=== PATIENT | male | born 1940 | race Caucasian/White ===

== ENCOUNTER 2023-05-18 14:52 | Emergency (ER) | payer OTHER, BC ==
[2023-05-18] MEDS ORDERED: ONDANSETRON 4 MG/2 ML VIAL ONE (15:21)
[2023-05-18] MEDS ORDERED: MORPHINE 4 MG/ML SYR ONE (15:21)
[2023-05-18] MEDS ORDERED: NA CHLORIDE 0.9% 1,000 ML ONE (15:22)
[2023-05-18] MEDS ORDERED: FAMOTIDINE 20 MG/2 ML VIAL IV ONE (15:22)
[2023-05-18 15:24] LABS: Absolute Lymphocytes (CBC) 2.2 K/uL (0.7-4.9); Hematocrit 48.7 % (39.6-49.0); MCV 89.9 fL (80-100); RBC Red Blood Cell Count 5.41 M/uL (4.33-5.43)
[2023-05-18 15:43] LABS: Bilirubin Total 1.2 mg/dL (0.2-1.0); Potassium 3.8 mEq/L (3.5-5.1); Troponin High Sensitivity 9.9 pg/mL (<58.9)
--- OUTSIDE RECORDS SUMMARY | 2023-05-18 15:46 | XMS REPORT | Continuity of Care Document ---
:1940 Author Organization [facility] t Address [address] [place] [address] Care Team Providers Name Role Phone Nahomy Acuña Attending Clinician Unavailable Payers Payer Name Policy Type Policy Number Effective Date Expiration Date Nandini Chew Cross 6 [id number] 2015 [facility] [employer] of 00:00:[address] - [facility] Problems Condition Condition Condition Status Onset Resolution Last Treating Co mments Source Name Details Category Date Date Treatment Clinician Date Ventral Ventral Problem Common hernia hernia [facility] Gastroesop Gastroesop Problem C ommon hageal hageal [facility] reflux reflux - [facility] disease disease St without without [facility] esophagiti esophagiti Dc dical s s Center Foot pain Foot pain Problem Com mon Spirit [facility] [id number] Pure Problem Common hyperchole Spirit sterolemia [facility] Renal Renal Problem Common insufficie insufficie Sp yuliet ncy ncy [facility] 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 - [facility] of macula [facility] Gastroesop GERD Problem Commo n hageal (gastroeso Spirit reflux phageal - [facility] disease reflux St disease) [facility] Shoulder Shoulder Problem Commo n pain pain [facility] Coronary Coronary Problem Commo n artery artery [facility] disease disease [facility] [id number] +5th digit Problem Co mmon eff Spirit 08/12/20*CK - [facility]I D (chronic St kidney [facility] disease), Medical stage III Center [id number] Facial Problem Common paresthesi [facility] a [facility] [id number] Allergic Problem Commo n rhinitis, Spirit unspecifie - [facility] d [facility] y, Medical unspecifie Center d trigger [id number] History of Problem Co mmon recurrent Spirit TIAs [facility] Eosinophil Eosinophil Problem C ommon ia ia [facility] Hypertensi Hypertensi Problem C ommon on on [facility] [id number] Erectile Problem Comm on dysfunctio [facility] n, - CHI unspecifie d erectile [facility] dysfunctio Medica l n type Center [id number] Cough Problem Common [facility] [id number] Generalize Problem Com mon d anxiety [facility] disorder [facility] 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 Social History Social Habit Start Date Stop Date Quantity Comments Source History of Tobacco Use Co mmon [facility] Sex Assigned At Com mon [facility] Smoking Status Start Date Stop Date Source Never Smoker [facility] Medications Ordered Filled Start Stop Current Ordering Indication Dosage Frequency Signature Comments Components Source Medication Medication Date Date Medication? Clinician (SIG) Name Name Famotidine Famotidine 2020-0 Yes Na Acuña 1 tablet Common 5-19 at bedtime Spirit 00:00: as needed - [facility] Famotidine Famotidine 2020-0 No 1{table QD Famotidine 40 MG 40 MG 5-19 t_at_be 40 MG 00:00: dtime_a 00 s_neede d} Famotidine Famotidine 2020-0 No 1{table QD Famotidine 40 MG 40 MG 5-19 t_at_be 40 MG 00:00: dtime_a 00 s_neede d} Famotidine Famotidine 2020-0 No 1{table QD Famotidine 40 MG 40 MG 5-19 t_at_be 40 MG 00:00: dtime_a 00 s_neede d} Famotidine Famotidine 2020-0 No 1{table QD Famotidine 40 MG 40 MG 5-19 t_at_be 40 MG 00:00: dtime_a 00 s_neede d} Famotidine Famotidine 2020-0 No 1{table QD Famotidine 40 MG 40 MG 5-19 t_at_be 40 MG 00:00: dtime_a 00 s_neede d} Famotidine Famotidine 2020-0 No 1{table QD Famotidine 40 MG 40 MG 5-19 t_at_be 40 MG 00:00: dtime_a 00 s_neede d} Famotidine Famotidine 2020-0 No 1{table QD Famotidine 40 MG 40 MG 5-19 t_at_be 40 MG 00:00: dtime_a 00 s_neede d} Famotidine Famotidine 2020-0 No 1{table QD Famotidine 40 MG 40 MG 5-19 t_at_be 40 MG 00:00: dtime_a 00 s_neede d} Famotidine Famotidine 2020-0 No 1{table QD Famotidine 40 MG 40 MG 5-19 t_at_be 40 MG 00:00: dtime_a 00 s_neede d} Famotidine Famotidine 2020-0 No 1{table QD Famotidine 40 MG 40 MG 5-19 t_at_be 40 MG 00:00: dtime_a 00 s_neede d} Famotidine Famotidine 2020-0 No 1{table QD Famotidine 40 MG 40 MG 5-19 t_at_be 40 MG 00:00: dtime_a 00 s_neede d} Clarinex Clarinex Yes Na Acuña 1 tablet [facility] - [facility] Flonase Flonase Yes Na Acuña USE 2 Commo n SPRAYS IN Spirit EACH - CHI NOSTRIL EVERY DAY [facility] Amlodipine Amlodipine Yes Na Acuña TAKE 1 Common Besy-Benaze Besy-Benaze CAPSULE BY Spirit pril HCl pril HCl MOUTH - CHI DAILY [facility] Aspir-81 Aspir-81 Yes Na Acuña 1 tablet Common [facility] Singulair Singulair Yes Na Acuña TAKE 1 Common TABLET BY Spirit MOUTH ONCE - CHI DAILY [facility] Lipitor Lipitor Yes Na Acuña 1 tablet Co mmon [facility] Flonase Flonase Yes Na Acuña USE 2 Commo n Allergy Allergy SPRAYS IN Spir it Relief Relief EACH - CHI NOSTRIL EVERY DAY [facility] [address] [facility] Citalopram Citalopram Yes Na Acuña 1 tablet Common Hydrobromid Hydrobromid S pirit e e - [facility] Hydrochloro Hydrochloro Yes Na Acuña 1 tablet Common thiazide thiazide in the Spiri t morning [facility] Vitamin D Vitamin D Yes Na Acuña 1 tablet Common [facility] Nisoldipine Nisoldipine Yes Na Acuña 1 tablet Common ER ER [facility] Lansoprazol Lansoprazol Yes Na Acuña 1 capsule Common e e [facility] Fish Oil Fish Oil Yes Na Acuña 1 capsule Common [facility] Fluticasone Fluticasone Yes Na Acuña INSTILL 2 Common Propionate Propionate SPRAYS IN Spirit EACH - CHI NOSTRIL [facility] PreserVisio PreserVisio Yes Na Acuña not Common n AREDS n AREDS defined Spirit 2+Multi Vit 2+Multi Vit - [facility] Plavix Plavix Yes Na Acuña 1 tablet Comm on [facility] Amlodipine Amlodipine Yes Na Acuña not Common Besy-Benaze Besy-Benaze defined Spirit pril HCl pril HCl - [facility] PreserVisio PreserVisio No PreserVisi n AREDS n AREDS on AREDS 2+Multi Vit 2+Multi Vit 2+Multi - - Vit - Citalopram Citalopram No 1{table QD Citalopram Hydrobromid Hydrobromid t} Hydrobromi e 20 MG e 20 MG de 20 MG Singulair Singulair No Singulair 10 MG 10 MG 10 MG Vitamin D Vitamin D No 1{table QD Vitamin D 1000 UNIT 1000 UNIT t} 1000 UNIT amLODIPine amLODIPine No amLODIPine Besy-Benaze Besy-Benaze Besy-Benaz pril HCl pril HCl epril HCl 10-40 MG 10-40 MG 10-40 MG Aspir-81 81 Aspir-81 81 No 1{table QD Aspir-81 MG MG t} 81 MG amLODIPine amLODIPine No QD amLODIPine Besy-Benaze Besy-Benaze Besy-Benaz pril HCl pril HCl epril HCl 10-40 MG 10-40 MG 10-40 MG Clopidogrel Clopidogrel No Clopidogre Bisulfate Bisulfate l 75 MG 75 MG Bisulfate 75 MG Atorvastati Atorvastati No Atorvastat n Calcium n Calcium in Calcium 40 MG 40 MG 40 MG hydroCHLORO hydroCHLORO No 1{table QD hydroCHLOR thiazide 25 thiazide 25 t_in_th Othiazide MG MG e_morni 25 MG ng} Lipitor 40 Lipitor 40 No 1{table QD Lipitor 40 MG MG t} MG Fluticasone Fluticasone No Fluticason Propionate Propionate e 50 MCG/ACT 50 MCG/ACT Propionate 50 MCG/ACT Plavix 75 Plavix 75 No 1{table QD Plavix 75 MG MG t} MG Fish Oil Fish Oil No 1{capsu QD Fish Oil 1000 MG 1000 MG le} 1000 MG PreserVisio PreserVisio No PreserVisi n AREDS n AREDS on AREDS 2+Multi Vit 2+Multi Vit 2+Multi - - Vit - Citalopram Citalopram No 1{table QD Citalopram Hydrobromid Hydrobromid t} Hydrobromi e 20 MG e 20 MG de 20 MG Singulair Singulair No Singulair 10 MG 10 MG 10 MG Vitamin D Vitamin D No 1{table QD Vitamin D 1000 UNIT 1000 UNIT t} 1000 UNIT amLODIPine amLODIPine No amLODIPine Besy-Benaze Besy-Benaze Besy-Benaz pril HCl pril HCl epril HCl 10-40 MG 10-40 MG 10-40 MG Aspir-81 81 Aspir-81 81 No 1{table QD Aspir-81 MG MG t} 81 MG amLODIPine amLODIPine No QD amLODIPine Besy-Benaze Besy-Benaze Besy-Benaz pril HCl pril HCl epril HCl 10-40 MG 10-40 MG 10-40 MG Clopidogrel Clopidogrel No Clopidogre Bisulfate Bisulfate l 75 MG 75 MG Bisulfate 75 MG Citalopram Citalopram No 1{table QD Citalopram Hydrobromid Hydrobromid t} Hydrobromi e 20 MG e 20 MG de 20 MG Lipitor 40 Lipitor 40 No 1{table QD Lipitor 40 MG MG t} MG Fluticasone Fluticasone No Fluticason Propionate Propionate e 50 MCG/ACT 50 MCG/ACT Propionate 50 MCG/ACT Plavix 75 Plavix 75 No 1{table QD Plavix 75 MG MG t} MG Fish Oil Fish Oil No 1{capsu QD Fish Oil 1000 MG 1000 MG le} 1000 MG PreserVisio PreserVisio No PreserVisi n AREDS n AREDS on AREDS 2+Multi Vit 2+Multi Vit 2+Multi - - Vit - amLODIPine amLODIPine No amLODIPine Besy-Benaze Besy-Benaze Besy-Benaz pril HCl pril HCl epril HCl 10-40 MG 10-40 MG 10-40 MG Singulair Singulair No Singulair 10 MG 10 MG 10 MG Atorvastati Atorvastati No Atorvastat n Calcium n Calcium in Calcium 40 MG 40 MG 40 MG hydroCHLORO hydroCHLORO No 1{table QD hydroCHLOR thiazide 25 thiazide 25 t_in_ Othiazide MG MG e_morni 25 MG ng} Vitamin D Vitamin D No 1{table QD Vitamin D 1000 UNIT 1000 UNIT t} 1000 UNIT Aspir-81 81 Aspir-81 81 No 1{table QD Aspir-81 MG MG t} 81 MG Clopidogrel Clopidogrel No Clopidogre Bisulfate Bisulfate l 75 MG 75 MG Bisulfate 75 MG Citalopram Citalopram No 1{table QD Citalopram Hydrobromid Hydrobromid t} Hydrobromi e 20 MG e 20 MG de 20 MG Lipitor 40 Lipitor 40 No 1{table QD Lipitor 40 MG MG t} MG Fluticasone Fluticasone No Fluticason Propionate Propionate e 50 MCG/ACT 50 MCG/ACT Propionate 50 MCG/ACT Plavix 75 Plavix 75 No 1{table QD Plavix 75 MG MG t} MG Fish Oil Fish Oil No 1{capsu QD Fish Oil 1000 MG 1000 MG le} 1000 MG PreserVisio PreserVisio No PreserVisi n AREDS n AREDS on AREDS 2+Multi Vit 2+Multi Vit 2+Multi - - Vit - amLODIPine amLODIPine No amLODIPine Besy-Benaze Besy-Benaze Besy-Benaz pril HCl pril HCl epril HCl 10-40 MG 10-40 MG 10-40 MG Singulair Singulair No Singulair 10 MG 10 MG 10 MG Atorvastati Atorvastati No Atorvastat n Calcium n Calcium in Calcium 40 MG 40 MG 40 MG hydroCHLORO hydroCHLORO No 1{table QD hydroCHLOR thiazide 25 thiazide 25 t_in_th Othiazide MG MG e_morni 25 MG ng} Vitamin D Vitamin D No 1{table QD Vitamin D 1000 UNIT 1000 UNIT t} 1000 UNIT Aspir-81 81 Aspir-81 81 No 1{table QD Aspir-81 MG MG t} 81 MG Clopidogrel Clopidogrel No Clopidogre Bisulfate Bisulfate l 75 MG 75 MG Bisulfate 75 MG Aspir-81 81 Aspir-81 81 No 1{table QD Aspir-81 MG MG t} 81 MG Atorvastati Atorvastati No Atorvastat n Calcium n Calcium in Calcium 40 MG 40 MG 40 MG Singulair Singulair No Singulair 10 MG 10 MG 10 MG Citalopram Citalopram No 1{table QD Citalopram Hydrobromid Hydrobromid t} Hydrobromi e 20 MG e 20 MG de 20 MG Clopidogrel Clopidogrel No Clopidogre Bisulfate Bisulfate l 75 MG 75 MG Bisulfate 75 MG Fish Oil Fish Oil No 1{capsu QD Fish Oil 1000 MG 1000 MG le} 1000 MG PreserVisio PreserVisio No PreserVisi n AREDS n AREDS on AREDS 2+Multi Vit 2+Multi Vit 2+Multi - - Vit - Fluticasone Fluticasone No Fluticason Propionate Propionate e 50 MCG/ACT 50 MCG/ACT Propionate 50 MCG/ACT Lipitor 40 Lipitor 40 No 1{table QD Lipitor 40 MG MG t} MG amLODIPine amLODIPine No amLODIPine Besy-Benaze Besy-Benaze Besy-Benaz pril HCl pril HCl epril HCl 10-40 MG 10-40 MG 10-40 MG hydroCHLORO hydroCHLORO No 1{table QD hydroCHLOR thiazide 25 thiazide 25 t_in_th Othiazide MG MG e_morni 25 MG ng} Plavix 75 Plavix 75 No 1{table QD Plavix 75 MG MG t} MG Vitamin D Vitamin D No 1{table QD Vitamin D 1000 UNIT 1000 UNIT t} 1000 UNIT Aspir-81 81 Aspir-81 81 No 1{table QD Aspir-81 MG MG t} 81 MG Atorvastati Atorvastati No Atorvastat n Calcium n Calcium in Calcium 40 MG 40 MG 40 MG Singulair Singulair No Singulair 10 MG 10 MG 10 MG Citalopram Citalopram No 1{table QD Citalopram Hydrobromid Hydrobromid t} Hydrobromi e 20 MG e 20 MG de 20 MG Clopidogrel Clopidogrel No Clopidogre Bisulfate Bisulfate l 75 MG 75 MG Bisulfate 75 MG Fish Oil Fish Oil No 1{capsu QD Fish Oil 1000 MG 1000 MG le} 1000 MG PreserVisio PreserVisio No PreserVisi n AREDS n AREDS on AREDS 2+Multi Vit 2+Multi Vit 2+Multi - - Vit - Fluticasone Fluticasone No Fluticason Propionate Propionate e 50 MCG/ACT 50 MCG/ACT Propionate 50 MCG/ACT Lipitor 40 Lipitor 40 No 1{table QD Lipitor 40 MG MG t} MG amLODIPine amLODIPine No amLODIPine Besy-Benaze Besy-Benaze Besy-Benaz pril HCl pril HCl epril HCl 10-40 MG 10-40 MG 10-40 MG hydroCHLORO hydroCHLORO No 1{table QD hydroCHLOR thiazide 25 thiazide 25 t_in_th Othiazide MG MG e_morni 25 MG ng} Plavix 75 Plavix 75 No 1{table QD Plavix 75 MG MG t} MG Vitamin D Vitamin D No 1{table QD Vitamin D 1000 UNIT 1000 UNIT t} 1000 UNIT Fish Oil Fish Oil No 1{capsu QD Fish Oil 1000 MG 1000 MG le} 1000 MG hydroCHLORO hydroCHLORO No 1{table QD hydroCHLOR thiazide 25 thiazide 25 t_in_th Othiazide MG MG e_morni 25 MG ng} Lipitor 40 Lipitor 40 No 1{table QD Lipitor 40 MG MG t} MG Plavix 75 Plavix 75 No 1{table QD Plavix 75 MG MG t} MG PreserVisio PreserVisio No PreserVisi n AREDS n AREDS on AREDS 2+Multi Vit 2+Multi Vit 2+Multi - - Vit - Singulair Singulair No Singulair 10 MG 10 MG 10 MG Atorvastati Atorvastati No Atorvastat n Calcium n Calcium in Calcium 40 MG 40 MG 40 MG Aspir-81 81 Aspir-81 81 No 1{table QD Aspir-81 MG MG t} 81 MG Fluticasone Fluticasone No Fluticason Propionate Propionate e 50 MCG/ACT 50 MCG/ACT Propionate 50 MCG/ACT amLODIPine amLODIPine No QD amLODIPine Besy-Benaze Besy-Benaze Besy-Benaz pril HCl pril HCl epril HCl 10-40 MG 10-40 MG 10-40 MG Clopidogrel Clopidogrel No Clopidogre Bisulfate Bisulfate l 75 MG 75 MG Bisulfate 75 MG Vitamin D Vitamin D No 1{table QD Vitamin D 1000 UNIT 1000 UNIT t} 1000 UNIT Citalopram Citalopram No 1{table QD Citalopram Hydrobromid Hydrobromid t} Hydrobromi e 20 MG e 20 MG de 20 MG amLODIPine amLODIPine No amLODIPine Besy-Benaze Besy-Benaze Besy-Benaz pril HCl pril HCl epril HCl 10-40 MG 10-40 MG 10-40 MG Fish Oil Fish Oil No 1{capsu QD Fish Oil 1000 MG 1000 MG le} 1000 MG hydroCHLORO hydroCHLORO No 1{table QD hydroCHLOR thiazide 25 thiazide 25 t_in_th Othiazide MG MG e_morni 25 MG ng} Lipitor 40 Lipitor 40 No 1{table QD Lipitor 40 MG MG t} MG Plavix 75 Plavix 75 No 1{table QD Plavix 75 MG MG t} MG PreserVisio PreserVisio No PreserVisi n AREDS n AREDS on AREDS 2+Multi Vit 2+Multi Vit 2+Multi - - Vit - Singulair Singulair No Singulair 10 MG 10 MG 10 MG Atorvastati Atorvastati No Atorvastat n Calcium n Calcium in Calcium 40 MG 40 MG 40 MG Aspir-81 81 Aspir-81 81 No 1{table QD Aspir-81 MG MG t} 81 MG Fluticasone Fluticasone No Fluticason Propionate Propionate e 50 MCG/ACT 50 MCG/ACT Propionate 50 MCG/ACT amLODIPine amLODIPine No QD amLODIPine Besy-Benaze Besy-Benaze Besy-Benaz pril HCl pril HCl epril HCl 10-40 MG 10-40 MG 10-40 MG Clopidogrel Clopidogrel No Clopidogre Bisulfate Bisulfate l 75 MG 75 MG Bisulfate 75 MG Vitamin D Vitamin D No 1{table QD Vitamin D 1000 UNIT 1000 UNIT t} 1000 UNIT Citalopram Citalopram No 1{table QD Citalopram Hydrobromid Hydrobromid t} Hydrobromi e 20 MG e 20 MG de 20 MG amLODIPine amLODIPine No amLODIPine Besy-Benaze Besy-Benaze Besy-Benaz pril HCl pril HCl epril HCl 10-40 MG 10-40 MG 10-40 MG Singulair Singulair No Singulair 10 MG 10 MG 10 MG Vitamin D Vitamin D No 1{table QD Vitamin D 1000 UNIT 1000 UNIT t} 1000 UNIT Clopidogrel Clopidogrel No Clopidogre Bisulfate Bisulfate l 75 MG 75 MG Bisulfate 75 MG Citalopram Citalopram No 1{table QD Citalopram Hydrobromid Hydrobromid t} Hydrobromi e 20 MG e 20 MG de 20 MG Aspir-81 81 Aspir-81 81 No 1{table QD Aspir-81 MG MG t} 81 MG Plavix 75 Plavix 75 No 1{table QD Plavix 75 MG MG t} MG amLODIPine amLODIPine No amLODIPine Besy-Benaze Besy-Benaze Besy-Benaz pril HCl pril HCl epril HCl 10-40 MG 10-40 MG 10-40 MG amLODIPine amLODIPine No QD amLODIPine Besy-Benaze Besy-Benaze Besy-Benaz pril HCl pril HCl epril HCl 10-40 MG 10-40 MG 10-40 MG Atorvastati Atorvastati No Atorvastat n Calcium n Calcium in Calcium 40 MG 40 MG 40 MG hydroCHLORO hydroCHLORO No 1{table QD hydroCHLOR thiazide 25 thiazide 25 t_in_th Othiazide MG MG e_morni 25 MG ng} Fluticasone Fluticasone No Fluticason Propionate Propionate e 50 MCG/ACT 50 MCG/ACT Propionate 50 MCG/ACT Fish Oil Fish Oil No 1{capsu QD Fish Oil 1000 MG 1000 MG le} 1000 MG PreserVisio PreserVisio No PreserVisi n AREDS n AREDS on AREDS 2+Multi Vit 2+Multi Vit 2+Multi - - Vit - Lipitor 40 Lipitor 40 No 1{table QD Lipitor 40 MG MG t} MG Singulair Singulair No Singulair 10 MG 10 MG 10 MG Vitamin D Vitamin D No 1{table QD Vitamin D 1000 UNIT 1000 UNIT t} 1000 UNIT Clopidogrel Clopidogrel No Clopidogre Bisulfate Bisulfate l 75 MG 75 MG Bisulfate 75 MG Citalopram Citalopram No 1{table QD Citalopram Hydrobromid Hydrobromid t} Hydrobromi e 20 MG e 20 MG de 20 MG Aspir-81 81 Aspir-81 81 No 1{table QD Aspir-81 MG MG t} 81 MG Plavix 75 Plavix 75 No 1{table QD Plavix 75 MG MG t} MG amLODIPine amLODIPine No amLODIPine Besy-Benaze Besy-Benaze Besy-Benaz pril HCl pril HCl epril HCl 10-40 MG 10-40 MG 10-40 MG amLODIPine amLODIPine No QD amLODIPine Besy-Benaze Besy-Benaze Besy-Benaz pril HCl pril HCl epril HCl 10-40 MG 10-40 MG 10-40 MG Atorvastati Atorvastati No Atorvastat n Calcium n Calcium in Calcium 40 MG 40 MG 40 MG hydroCHLORO hydroCHLORO No 1{table QD hydroCHLOR thiazide 25 thiazide 25 t_in_th Othiazide MG MG e_morni 25 MG ng} Fluticasone Fluticasone No Fluticason Propionate Propionate e 50 MCG/ACT 50 MCG/ACT Propionate 50 MCG/ACT Fish Oil Fish Oil No 1{capsu QD Fish Oil 1000 MG 1000 MG le} 1000 MG PreserVisio PreserVisio No PreserVisi n AREDS n AREDS on AREDS 2+Multi Vit 2+Multi Vit 2+Multi - - Vit - Lipitor 40 Lipitor 40 No 1{table QD Lipitor 40 MG MG t} MG hydroCHLORO hydroCHLORO No 1{table QD hydroCHLOR thiazide 25 thiazide 25 t_in_th Othiazide MG MG e_morni 25 MG ng} Fluticasone Fluticasone No Fluticason Propionate Propionate e 50 MCG/ACT 50 MCG/ACT Propionate 50 MCG/ACT Vitamin D Vitamin D No 1{table QD Vitamin D 1000 UNIT 1000 UNIT t} 1000 UNIT hydroCHLORO hydroCHLORO No hydroCHLOR thiazide 25 thiazide 25 Othiazide MG MG 25 MG Flonase Flonase No Flonase Allergy Allergy Allergy Relief 50 Relief 50 Relief 50 MCG/ACT MCG/ACT MCG/ACT Lipitor 40 Lipitor 40 No 1{table QD Lipitor 40 MG MG t} MG Fish Oil Fish Oil No 1{capsu QD Fish Oil 1000 MG 1000 MG le} 1000 MG amLODIPine amLODIPine No amLODIPine Besy-Benaze Besy-Benaze Besy-Benaz pril HCl pril HCl epril HCl 10-40 MG 10-40 MG 10-40 MG Plavix 75 Plavix 75 No 1{table QD Plavix 75 MG MG t} MG Diclofenac Diclofenac No 1{table Diclofenac Sodium 75 Sodium 75 t_with_ Sodium 75 MG MG food_or MG _milk} Lansoprazol Lansoprazol No 1{capsu QD Lansoprazo e 30 MG e 30 MG le} le 30 MG Aspir-81 81 Aspir-81 81 No 1{table QD Aspir-81 MG MG t} 81 MG Citalopram Citalopram No 1{table QD Citalopram Hydrobromid Hydrobromid t} Hydrobromi e 20 MG e 20 MG de 20 MG Atorvastati Atorvastati No Atorvastat n Calcium n Calcium in Calcium 40 MG 40 MG 40 MG Singulair Singulair No Singulair 10 MG 10 MG 10 MG Nisoldipine Nisoldipine No 1{table QD Nisoldipin ER 40 MG ER 40 MG t} e ER 40 MG Singulair Singulair No Singulair 10 MG 10 MG 10 MG Clarinex 5 Clarinex 5 No 1{table QD Clarinex 5 MG MG t} MG Clopidogrel Clopidogrel No Clopidogre Bisulfate Bisulfate l 75 MG 75 MG Bisulfate 75 MG PreserVisio PreserVisio No PreserVisi n AREDS n AREDS on AREDS 2+Multi Vit 2+Multi Vit 2+Multi - - Vit - Flonase 50 Flonase 50 No Flonase 50 MCG/ACT MCG/ACT MCG/ACT Atorvastati Atorvastati No Atorvastat n Calcium n Calcium in Calcium 40 MG 40 MG 40 MG hydroCHLORO hydroCHLORO No 1{table QD hydroCHLOR thiazide 25 thiazide 25 t_in_ Othiazide MG MG e_morni 25 MG ng} Lipitor 40 Lipitor 40 No 1{table QD Lipitor 40 MG MG t} MG Fluticasone Fluticasone No Fluticason Propionate Propionate e 50 MCG/ACT 50 MCG/ACT Propionate 50 MCG/ACT Plavix 75 Plavix 75 No 1{table QD Plavix 75 MG MG t} MG Fish Oil Fish Oil No 1{capsu QD Fish Oil 1000 MG 1000 MG le} 1000 MG Vital Signs Vital Name Observation Time Observation Value Comments Source height 2022-07-28 08:20:00 68.00 [in_i] [facility] weight 2022-07-28 08:20:00 177 [lb_av] [facility] temperature 2022-07-28 08:20:00 97.5 [degF] [facility] bmi 2022-07-28 08:20:00 26.91 kg/m2 [facility] oximetry 2022-07-28 08:20:00 97 % [facility] respiratory rate 2022-07-28 08:20:00 16 /min Comm on [facility] blood pressure 2022-07-28 08:20:00 138 mm[place]Hg] [facility] [place] [facility] blood pressure 2022-07-28 08:20:00 67 mm[Hg] Common [facility] - diastolic [facility] height 2022-07-28 09:00:00 68.00 [in_i] [facility] weight 2022-07-28 09:00:00 177 [lb_av] [facility] temperature 2022-07-28 09:00:00 97.5 [degF] [facility] bmi 2022-07-28 09:00:00 26.91 kg/m2 [facility] oximetry 2022-07-28 09:00:00 97 % [facility] respiratory rate 2022-07-28 09:00:00 16 /min Comm on [facility] blood pressure 2022-07-28 09:00:00 138 mm[Hg] Common [facility] - systolic [facility] blood pressure 2022-07-28 09:00:00 67 mm[Hg] Common [facility] - diastolic [facility] height 2022-04-14 09:20:00 68.00 [in_i] Common [facility] weight 2022-04-14 09:20:00 177 [lb_av] Common [facility] temperature 2022-04-14 09:20:00 97.6 [degF] Common [facility] bmi 2022-04-14 09:20:00 26.91 kg/m2 [facility] oximetry 2022-04-14 09:20:00 96 % [facility] respiratory rate 2022-04-14 09:20:00 16 /min Comm on [facility] blood pressure 2022-04-14 09:20:00 130 mm[Hg] Common [facility] - systolic [facility] blood pressure 2022-04-14 09:20:00 68 mm[Hg] Common [facility] - diastolic [facility] height 2021-10-20 10:00:00 68.00 [in_i] [facility] weight 2021-10-20 10:00:00 175 [lb_av] [facility] temperature 2021-10-20 10:00:00 97.9 [degF] Common [facility] bmi 2021-10-20 10:00:00 26.61 kg/m2 [facility] oximetry 2021-10-20 10:00:00 96 % [facility] blood pressure 2021-10-20 10:00:00 130 mm[Hg] Common [facility] - systolic [facility] blood pressure 2021-10-20 10:00:00 74 mm[Hg] Common [facility] - diastolic [facility] Procedures This patient has no known procedures. Encounters Start End Encounter Admission Attending Care Care Encounter Source Date/Time Date/Time Type Type Clinicians Facility Department ID 2022 Outpatient [place], Na STLMLC STLMLC [id number] 2 Common 08:33:00 [facility] 2022-07-31 Outpatient Acuña, Na STLMLC STLMLC [id number] 2 Common 11:45:02 [facility] 2022-07-27 Outpatient Acuña, Na STLMLC STLMLC [id number] 2 Common 11:44:00 [facility] 2022-04-21 Outpatient Acuña, Na STLMLC STLMLC [id number] 2 Common 07:15:00 [facility] 2022-04-12 Outpatient Acuña, Na STLMLC STLMLC [id number] 2 Common 08:40:00 [facility] 2022-01-27 Outpatient [place], Na STLMLC STLMLC [id number] 2 Common 16:41:00 [facility] 2021-12-14 Outpatient [place], Na STLMLC STLMLC [id number] 2 Common 11:28:00 [facility] 2021-12-07 Outpatient [place], Na STLMLC STLMLC [id number] 2 Common 14:38:55 [facility] 2021-12-07 Outpatient [place], Na STLMLC STLMLC [id number] 2 Common 14:28:57 [facility] 2021-12-07 [place]patient [place] STLMLC STLMLC [id number] Common 14:27:33 [id number] [facility] 2021-12-07 [place]patient [place] STLMLC STLMLC [id number] 2 Common 13:47:09 [id number] [facility] 2021-12-07 Outpatient [place], [place] STLMLC STLMLC [id number] 2 Common 13:03:43 [id number] [facility] 2021-12-07 Outpatient [place], [place] STLMLC STLMLC [id number] 2 Common 12:31:14 [id number] [facility] 2021-12-07 Outpatient [place], [place] STLMLC STLMLC [id number] 2 Common 12:27:36 [id number] [facility] 2021-12-07 Outpatient [place], [place] STLMLC STLMLC [id number] 2 Common 11:56:47 [id number] [facility] 2021-12-07 Outpatient [place], [place] STLMLC STLMLC [id number] 2 Common 11:32:03 [id number] [facility] 2022-10-31 2022-10-31 (TEL) STLMLC STLMLC [id number] Co mmon 00:00:00 00:00:00 [facility] 2022-10-31 2022-10-31 OL DIG E/M STLMLC STLMLC [id number] Common 00:00:00 00:00:00 [facility] [place] it MIN [facility] 2022-07-28 2022-07-28 SUB ANNUAL STLMLC STLMLC [id number] Common 00:00:00 00:00:00 MCR [facility] VISIT [facility] 2022-07-28 2022-07-28 OFFICE STLMLC STLMLC [id number] Co mmon 00:00:00 00:00:00 VISIT EST Spir it PT LEVEL 3 [facility] 2022-05-05 2022-05-05 (TEL) STLMLC STLMLC [id number] Co mmon 00:00:00 00:00:00 [facility] 2022-04-14 2022-04-14 OFFICE STLMLC STLMLC [id number] Co mmon 00:00:00 00:00:00 VISIT EST Spir it PT LEVEL 3 [facility] 2022-04-06 2022-04-06 (TEL) STLMLC STLMLC [id number] Co mmon 00:00:00 00:00:00 [facility] 2022-02-28 2022-02-28 (TEL) STLMLC STLMLC [id number] Co mmon 00:00:00 00:00:00 [facility] 2021-11-01 2021-11-01 (TEL) STLMLC STLMLC [id number] Co mmon 00:00:00 00:00:00 [facility] 2021-10-20 2021-10-20 OFFICE STLMLC STLMLC [id number] Co mmon 00:00:00 00:00:00 VISIT [facility] 4 [facility] 2021-10-19 2021-10-19 (TEL) STLMLC STLMLC [id number] Co mmon 00:00:00 00:00:00 [facility] 2021-07-05 2021-07-05 Outpatient STLMLC STLMLC [id number] Common 00:00:00 00:00:00 [facility] 2021-03-30 2021-03-30 Outpatient STLMLC STLMLC [id number] Common 00:00:00 00:00:00 [facility] 2021-03-30 2021-03-30 Outpatient STLMLC STLMLC [id number] Common 00:00:00 00:00:00 [facility] 2020-12-16 2020-12-16 Outpatient STLMLC STLMLC [id number] Common 00:00:00 00:00:00 [facility] 2020-09-08 2020-09-08 Outpatient STLMLC STLMLC [id number] Common 00:00:00 00:00:00 [facility] 2020-09-02 2020-09-02 Outpatient STLMLC STLMLC [id number] Common 00:00:00 00:00:00 [facility] 2020-06-02 2020-06-02 [facility] [id number] Common 09:00:00 09:00:[address] [facility] 2020-06-02 2020-06-02 [facility] [id number] Common 08:00:00 08:00:[address] [place] [address] [address] [facility] 2020-03-30 2020-03-30 [facility] [id number] Common 06:42:00 06:42:[address] [facility] 2020-02-17 2020-02-17 [facility] [id number] Common 09:00:00 09:00:[address] [facility] 2019-10-14 2019-10-14 [facility] [id number] Common 13:40:00 13:40:[address] [facility] 2019-06-19 2019-06-19 [facility] [id number] Common 10:00:00 10:00:[address] [facility] 2019-02-13 2019-02-13 [facility] [id number] Common 09:40:00 09:40:[address] [facility] 2018-11-14 2018-11-14 [facility] [id number] Common 09:15:00 09:15:[address] [facility] 2018-08-27 2018-08-27 [facility] [id number] Common 17:55:00 17:55:[address] [facility] 2018-08-14 2018-08-14 [facility] [id number] Common 09:00:00 09:00:[address] [facility] 2018-05-16 2018-05-16 [facility] [id number] Common 09:00:00 09:00:[address] [facility] Results This patient has no known results.
--- NOTE | 2023-05-18 16:40 | RAD REPORT ---
EXAM DESCRIPTION: RADChest Single View05/18/2023 3:55 pm CLINICAL HISTORY: COUGH COMPARISON: Chest Pa And Lat (2 Views) dated 04/25/2023; Chest Pa And Lat (2 Views) dated 08/27/2018; CHEST PA AND LAT 2 VIEW dated 01/16/2013; CHEST PA AND LAT 2 VIEW dated 01/31/2012; Abdomen Pelvis W Contrast dated 05/18/2023 TECHNIQUE: Portable AP view of the chest. FINDINGS: Decreased inspiratory effort limits evaluation. Mild central interstitial prominence, appe ars accentuated by central vascular crowding. No focal airspace consolidation. Gas under the right he midiaphragm, likely relates to colonic transposition. No pneumothorax or effusion. The cardiomediast inal contours are unremarkable. IMPRESSION: Suggestion of mild central interstitial prominence, could relate to vascular crowding or mild central edema. Lungs are otherwise clear.
--- NOTE | 2023-05-18 16:54 | RAD REPORT ---
EXAM DESCRIPTION: CT - Abdomen Pelvis W Contrast - 05/18/2023 4:06 pm CLINICAL HISTORY: ABD PAIN COMPARISON: Abdomen Pelvis W Contrast dated 01/13/2019 TECHNIQUE: Thin cut axial CT imaging of the abdomen and pelvis was performed following intravenous a dministration of 100 mL Isovue 300. Multiplanar reformats were generated and reviewed. All CT scans are performed using dose optimization technique as appropriate and may include automated exposure control or mA/KV adjustment according to patient size. FINDINGS: No suspicious findings in the lung bases. Bibasilar atelectatic changes. The liver, spleen, and pancreas show no suspicious findings. Gallbladder and biliary tree are also wi thout suspicious finding. Symmetric renal function is seen with no hydronephrosis or suspicious renal mass. Bilateral parapelvi c cysts. Scattered punctate metallic densities throughout the abdominal cavity as well as the abdominal wall a nd back musculature. Segmental fluid filling within non - dilated small bowel loops. No bowel wall th ickening. No free air, free fluid or inflammatory stranding. No hernia, mass or bulky lymphadenopathy . The urinary bladder is without significant finding. Prostatomegaly. No suspicious bony findings. Degenerative changes, with grade 1 spondylolisthesis at L4-5. IMPRESSION: Segmental fluid filling within non - dilated small bowel loops. This is nonspecific, and may relate to enteritis or diarrheal state. No other acute intra-abdominal process. Other stable findings as above.
--- NOTE | 2023-05-18 17:01 | RAD REPORT ---
EXAM DESCRIPTION: US - Abdomen Exam Limited - 05/18/2023 4:35 pm CLINICAL HISTORY: ABD PAIN COMPARISON: Barium Swallow Modified dated 04/25/2023 TECHNIQUE: Sonographic grayscale and color flow images of the right upper quadrant were obtained. FINDINGS: The gallbladder demonstrates no gallstones. No pericholecystic fluid or gallbladder wall t hickening. The common bile duct is normal measuring 3 mm. The liver demonstrates no findings of intrahepatic biliary dilatation. IMPRESSION: Unremarkable right upper abdominal quadrant ultrasound.
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
[2023-05-18 17:27] VITALS: TEMP 98.4
[2023-05-18 17:30] VITALS: BP 162/57; O2SAT 95
--- NOTE | 2023-05-19 16:18 | EKG ---
Test Date: 2023-05-18 Test Time: 15:21:30 Quenching Machine Operator: ALFREDITO MEASUREMENT RESULTS: Intervals: Rate: 49 WV: 216 QRSD: 92 QT: 458 QTc: 413 Hostetter: P: 73 WV: 216 QRS: 64 T: 75 INTERPRETIVE STATEMENTS: Sinus bradycardia with 1st degree AV block Nonspecific ST abnormality Abnormal ECG Compared to ECG 10/19/2003 10:51:00 First degree AV block now present ST (T wave) deviation now present Electronically Signed On 05-19-23 16:16:39 CDT by Srikanth Martinez
== END 2023-05-18 17:23 | disposition home or self-care (01) ==
LOC: ER 14:52
DX: K52.9 Noninfective gastroenteritis and colitis, unspecified (principal); I10 Essential (primary) hypertension; F17.220 Nicotine dependence, chewing tobacco, uncomplicated; F17.290 Nicotine dependence, other tobacco product, uncomplicated
CPT/HCPCS: 93005; 85025; 36415; 84484; 83690; 80053; 74177; 71045; 76705; 96375; 96374; 99284; Q9967; J2405; J7030

== ENCOUNTER 2023-05-25 10:39 | Day surgery (SDC) | payer OTHER, BC ==
[2023-05-25] MEDS ORDERED: Ringers Lactate 1,000 ML IV ONE (11:11)
[2023-05-25] MEDS ORDERED: Xeomin 100 Unit Vial IM ONE (14:34)
[2023-05-25] MEDS ORDERED: SUCCINYLCHOLINE 20 MG/ML (10 ML) IV ONE (15:17)
[2023-05-25] MEDS ORDERED: OXYMETAZOLINE HCL 0.05% 15ML NAS ONE (15:23)
[2023-05-25] MEDS ORDERED: EPINEPHRINE/PF 1 MG/ML AMP ONE (15:23)
[2023-05-25] MEDS ORDERED: ROCURONIUM 50 MG/5 ML VIAL IV ONE (15:23)
[2023-05-25] MEDS ORDERED: ONDANSETRON 4 MG/2 ML VIAL ONE (15:23)
[2023-05-25] MEDS ORDERED: FENTANYL CITR 100 MCG/2 ML ONE (15:23)
[2023-05-25] MEDS ORDERED: LIDOCAINE 2% MPF 5 ML VIAL ONE (15:23)
[2023-05-25] MEDS ORDERED: MIDAZOLAM HCL 2 MG/2 ML INJ ONE (15:23)
[2023-05-25] MEDS ORDERED: propofoL 200 MG/20 ML VIAL IV ONE (15:23)
[2023-05-25] MEDS ORDERED: LIDOCAINE 1% W/EPI 1:100,000 50 ML MDV ONE (15:42)
[2023-05-25] MEDS ORDERED: GLYCOPYRROLATE 0.2 MG/ML SYR ONE (16:34)
[2023-05-25] MEDS ORDERED: EPHEDRINE SULF 50 MG/ML VIAL ONE (16:34)
--- NOTE | 2023-05-25 16:47 | P.OP ---
Video Specialist: NONE,NONE Preoperative diagnosis: Cricopharyngeal spasm, dysphagia Postoperative diagnosis: Same Primary procedure: Rigid esophagoscopy with submucosal injection of neuromodulator Anesthesia: General Estimated blood loss: None Specimen: None Findings: Prominent cricopharyngeal bar Operative Technique: After adequate plane of anesthesia, the rigid cervical esophagoscope was passed gently through the mouth and beyond the oral pharynx. During visualization of the palate, uvula and posterior pharyngeal wall there were no specific abnormalities. The vallecula and epiglottis appeared unremarkable. The details of the larynx were partially obscured by the presence of the endotracheal tube. The esophagoscope was passed into the esophageal introitus and gently advanced under direct visualization of the esophageal lumen. The cricopharyngeal bar was noted and carefully transversed. The rigid esophagoscope was passed to its full length. Foamy and clear secretions were suctioned from the lumen of the esophagus and the rigid esophagoscope was slowly withdrawn while carefully visualizing the mucosal surfaces of the esophagus which appeared smooth and pink with no significant abnormalities. When the cricopharyngeal bar was again encountered, the side kick needle which had been previously loaded with Xeomin neuromodulator, 7 mL per 0.1 mL was used to perform for aliquots of 0.1 mL into the cricopharyngeus muscle submucosally for a total dose of 28 units. After injection the area was carefully visualized and there is no significant bleeding or bruising. The esophagoscope was withdrawn completely. The lips, tongue, gingiva and teeth were unchanged from the beginning of the procedure. The patient was returned to care of anesthesia for awakening and extubation in the operating room which proceeded without difficulty.
[2023-05-25] MEDS ORDERED: Ringers Lactate 500 ML IV ONE (17:02)
[2023-05-25 17:22] VITALS: O2SAT 98
[2023-05-25 18:35] VITALS: BP 179/63; TEMP 97.7
== END 2023-05-25 18:20 | disposition home or self-care (01) ==
LOC: OR 10:39
PROVIDERS: ATTEND Otolaryngology
PROC: 3E023GC Introduction of Other Therapeutic Substance into Muscle, Percutaneous Approach (ICD-10-PCS; principal; 2023-05-25 12:45)
DX: R47.02 Dysphasia (principal); J39.2 Other diseases of pharynx
CPT/HCPCS: 43192; J2704; J2001; J2250; J3010; J2405; J0588; J7120; J0171

== ENCOUNTER 2023-06-01 19:48 | Inpatient (IN) | payer OTHER, BC ==
--- OUTSIDE RECORDS SUMMARY | 2023-06-01 19:54 | XMS REPORT | Continuity of Care Document ---
:1940 Author Organization [facility] t Address [address] [facility] [place] [address] Care Team Providers Name Role Phone Nahomy Acuña Attending Clinician Unavailable Payers Payer Name Policy Type Policy Number Effective Date Expiration Date S sylwia [employer] 6 [id number] 2015 [facility] [employer] of 00:00:00 - [facility] Problems Condition Condition Condition Status Onset Resolution Last Treating Co mments Source Name Details Category Date Date Treatment Clinician Date Ventral Ventral Problem Common hernia hernia Spirit [facility] Gastroesop Gastroesop Problem C ommon hageal hageal Spirit reflux reflux - [facility] disease disease [facility] Foot pain Foot pain Problem Com mon Spirit [facility] [id number] Pure Problem Common hyperchole Spirit sterolemia - [facility] Renal Renal Problem Common insufficie insufficie Sp yuliet ncy ncy [facility] 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 - [facility]I of macula [facility] Gastroesop GERD Problem Commo n hageal (gastroeso Spirit reflux phageal - [facility] disease reflux St disease) [facility] Shoulder Shoulder Problem Commo n pain pain [facility] Coronary Coronary Problem Commo n artery artery [facility] disease disease [facility] [id number] +5th digit Problem Co mmon eff Spirit 08/12/20*CK - CHI D (chronic kidney [facility] disease), Medical stage III Center [id number] Facial Problem Common paresthesi [facility] a [facility] [id number] Allergic Problem Commo n rhinitis, Spirit unspecifie - [facility] d [facility] y, Medical unspecifie Center d trigger [id number] History of Problem Co mmon recurrent Spirit TIAs [facility] Eosinophil Eosinophil Problem C ommon ia ia [facility] Hypertensi Hypertensi Problem C ommon on on [facility] [id number] Erectile Problem Comm on dysfunctio [facility] n, - [facility] unspecifie [facility] erectile [facility] dysfunctio Medica l n type Center [id number] Cough Problem Common [facility] [id number] Generalize Problem Com mon d anxiety [facility] disorder [facility] Chronic Stage 3a Problem Common kidney chronic [facility] disease kidney [facility] stage 3A disease [facility] Allergies, Adverse Reactions, Alerts This patient has no known allergies or adverse reactions. Social History Social Habit Start Date Stop Date Quantity Comments Source History of Tobacco Use Co mmon [facility] Sex Assigned At Com mon [facility] Smoking Status Start Date Stop Date Source Never Smoker [facility] Medications Ordered Filled Start Stop Current Ordering Indication Dosage Frequency Signature Comments Components Source Medication Medication Date Date Medication? Clinician (SIG) Name Name Famotidine Famotidine 2020-0 Yes Na Acuña 1 tablet Common 5-19 at bedtime [facility] 00:00: as needed - CHI 00 [facility] Famotidine Famotidine 2020-0 No 1{table QD [...] Acuña 1 tablet [facility] - [facility] Flonase Flonase Yes Na Acuña USE 2 Commo n SPRAYS IN Spirit EACH - CHI NOSTRIL St EVERY DAY [facility] Amlodipine Amlodipine Yes Na Acuña TAKE 1 Common Besy-Benaze Besy-Benaze CAPSULE BY Spirit pril HCl pril HCl MOUTH - CHI DAILY [facility] Aspir-81 Aspir-81 Yes Na Acuña 1 tablet Common [facility] Singulair Singulair Yes Na Acuña TAKE 1 Common TABLET BY Spirit MOUTH ONCE - CHI DAILY [facility] Lipitor Lipitor Yes Na Acuña 1 tablet Co mmon [facility] Flonase Flonase Yes Na Acuña USE 2 Commo n Allergy Allergy SPRAYS IN Spir it Relief Relief EACH - CHI NOSTRIL St EVERY DAY [facility] 90 days [facility] Citalopram Citalopram Yes Na Acuña 1 tablet Common Hydrobromid Hydrobromid S pirit e e - [facility] Hydrochloro Hydrochloro Yes Na Acuña 1 tablet Common thiazide thiazide in the Spiri t morning [facility] Vitamin D Vitamin D Yes Na Acuña 1 tablet Common [facility] Nisoldipine Nisoldipine Yes Na Acuña 1 tablet Common ER ER [facility] Lansoprazol Lansoprazol Yes Na Acuña 1 capsule Common e e [facility] Fish Oil Fish Oil Yes Na Acuña 1 capsule Common [facility] Fluticasone Fluticasone Yes Na Acuña INSTILL 2 Common Propionate Propionate SPRAYS IN Spirit EACH - CHI NOSTRIL [facility] PreserVisio PreserVisio Yes Na Acuña not Common n AREDS n AREDS defined Spirit 2+Multi Vit 2+Multi Vit - [facility] Plavix Plavix Yes Na Acuña 1 tablet Comm on [facility] Amlodipine Amlodipine Yes Na Acuña not Common Besy-Benaze Besy-Benaze defined Spirit pril HCl pril HCl - [facility] PreserVisio PreserVisio No PreserVisi n AREDS n [...] Comments Source height 2022-07-28 08:20:00 68.00 [in_i] [facility] weight 2022-07-28 08:20:00 177 [lb_av] [facility] temperature 2022-07-28 08:20:00 97.5 [degF] [facility] bmi 2022-07-28 08:20:00 26.91 kg/m2 [facility] oximetry 2022-07-28 08:20:00 97 % [facility] respiratory rate 2022-07-28 08:20:00 16 /min Comm on Spirit [facility] blood pressure 2022-07-28 08:20:00 138 mm[Hg] [facility] - systolic [facility] blood pressure 2022-07-28 08:20:00 67 mm[Hg] [facility] - diastolic [facility] height 2022-07-28 09:00:00 68.00 [in_i] [facility] weight 2022-07-28 09:00:00 177 [lb_av] [facility] temperature 2022-07-28 09:00:00 97.5 [degF] [facility] bmi 2022-07-28 09:00:00 26.91 kg/m2 [facility] oximetry 2022-07-28 09:00:00 97 % [facility] respiratory rate 2022-07-28 09:00:00 16 /min Comm on [facility] blood pressure 2022-07-28 09:00:00 138 mm[Hg] [facility] - systolic [facility] blood pressure 2022-07-28 09:00:00 67 mm[Hg] [facility] - diastolic [facility] height 2022-04-14 09:20:00 68.00 [in_i] Common [facility] weight 2022-04-14 09:20:00 177 [lb_av] Common [facility] temperature 2022-04-14 09:20:00 97.6 [degF] Common [facility] bmi 2022-04-14 09:20:00 26.91 kg/m2 [facility] oximetry 2022-04-14 09:20:00 96 % [facility] respiratory rate 2022-04-14 09:20:00 16 /min Comm on [facility] blood pressure 2022-04-14 09:20:00 130 mm[Hg] Common [facility] - systolic [facility] blood pressure 2022-04-14 09:20:00 68 mm[Hg] Common [facility] - diastolic [facility] height 2021-10-20 10:00:00 68.00 [in_i] Common [facility] weight 2021-10-20 10:00:00 175 [lb_av] Common S [facility] temperature 2021-10-20 10:00:00 97.9 [degF] Common S [facility] bmi 2021-10-20 10:00:00 26.61 kg/m2 Common [facility] oximetry 2021-10-20 10:00:00 96 % [facility] blood pressure 2021-10-20 10:00:00 130 mm[Hg] Common [facility] - systolic [facility] blood pressure 2021-10-20 10:00:00 74 mm[Hg] Common [facility] Procedures This patient has no known procedures. Encounters Start End Encounter Admission Attending Care Care Encounter Source Date/Time Date/Time Type Type Clinicians Facility Department ID 2022 Outpatient Acuña, Na STLMLC STLMLC [id number] Common 08:33:00 [facility] 2022-07-31 Outpatient Acuña, Na STLMLC STLMLC [id number] 2 Common 11:45:02 [facility] 2022-07-27 Outpatient Acuña, Na STLMLC STLMLC [id number] 2 Common 11:44:00 [facility] 2022-04-21 Outpatient Acuña, Na STLMLC STLMLC [id number] 2 Common 07:15:00 [facility] 2022-04-12 Outpatient Acuña, Na STLMLC STLMLC [id number] 2 Common 08:40:00 [facility] 2022-01-27 Outpatient Acuña, Na STLMLC STLMLC [id number] 2 Common 16:41:00 [facility] 2021-12-14 Outpatient Acuña, Na STLMLC STLMLC [id number] 2 Common 11:28:00 [facility] 2021-12-07 Outpatient Acuña, Na STLMLC STLMLC [id number] 2 Common 14:38:55 [facility] 2021-12-07 Outpatient Acuña, Na STLMLC STLMLC [id number] 2 Common 14:28:57 [facility] 2021-12-07 Outpatient Acuña, Na STLMLC STLMLC [id number] 2 Common 14:27:33 [facility] 2021-12-07 Outpatient Acuña, Na STLMLC STLMLC [id number] 2 Common 13:47:09 [id number] [facility] 2021-12-07 Outpatient Acuña, Na STLMLC STLMLC [id number] 2 Common 13:03:43 [id number] [facility] 2021-12-07 Outpatient Acuña, Na STLMLC STLMLC [id number] 2 Common 12:31:14 [id number] [facility] 2021-12-07 Outpatient Acuña, Na STLMLC STLMLC [id number] 2 Common 12:27:36 [id number] [facility] 2021-12-07 Outpatient Acuña, Na STLMLC STLMLC [id number] 2 Common 11:56:47 [id number] [facility] 2021-12-07 Outpatient Acuña, Na STLMLC STLMLC [id number] 2 Common 11:32:03 [id number] [facility] 2022-10-31 2022-10-31 (TEL) STLMLC STLMLC [id number] Co mmon 00:00:00 00:00:00 [facility] 2022-10-31 2022-10-31 OL DIG E/M STLMLC STLMLC [id number] Common 00:00:00 00:00:00 [facility] 11-20 Spir it MIN [facility] 2022-07-28 2022-07-28 SUB ANNUAL STLMLC STLMLC [id number] Common 00:00:00 00:00:00 MCR [facility] VISIT [facility] 2022-07-28 2022-07-28 OFFICE STLMLC STLMLC [id number] Co mmon 00:00:00 00:00:00 VISIT EST Spir it PT LEVEL 3 [facility] 2022-05-05 2022-05-05 (TEL) STLMLC STLMLC [id number] Co mmon 00:00:00 00:00:00 [facility] 2022-04-14 2022-04-14 OFFICE STLMLC STLMLC [id number] Co mmon 00:00:00 00:00:00 VISIT EST Spir it PT LEVEL 3 [facility] 2022-04-06 2022-04-06 (TEL) STLMLC STLMLC [id number] Co mmon 00:00:00 00:00:00 [facility] 2022-02-28 2022-02-28 (TEL) STLMLC STLMLC [id number] Co mmon 00:00:00 00:00:00 [facility] 2021-11-01 2021-11-01 (TEL) STLMLC STLMLC [id number] Co mmon 00:00:00 00:00:00 [facility] 2021-10-20 2021-10-20 OFFICE STLMLC STLMLC [id number] Co mmon 00:00:00 00:00:[address] [facility] 4 [facility] 2021-10-19 2021-10-19 (TEL) STLMLC STLMLC [id number] Co mmon 00:00:00 00:00:00 [facility] 2021-07-05 2021-07-05 Outpatient STLMLC STLMLC [id number] Common 00:00:00 00:00:00 [facility] 2021-03-30 2021-03-30 Outpatient STLMLC STLMLC [id number] Common 00:00:00 00:00:00 [facility] 2021-03-30 2021-03-30 Outpatient STLMLC STLMLC [id number] Common 00:00:00 00:00:00 [facility] 2020-12-16 2020-12-16 Outpatient STLMLC STLMLC [id number] Common 00:00:00 00:00:00 [facility] 2020-09-08 2020-09-08 Outpatient STLMLC STLMLC [id number] Common 00:00:00 00:00:00 [facility] 2020-09-02 2020-09-02 Outpatient STLMLC STLMLC [id number] Common 00:00:00 00:00:00 [facility] 2020-06-02 2020-06-02 [id number] Common 09:00:00 09:00:[address] [place] [address] [facility] 2020-06-02 2020-06-02 [facility] [id number] Common 08:00:00 08:00:[address] [facility] 2020-03-30 2020-03-30 [facility] [id number] Common 06:42:00 06:42:[address] [facility] 2020-02-17 2020-02-17 [facility] [id number] Common 09:00:00 09:00:[address] [facility] 2019-10-14 2019-10-14 [facility] [id number] Common 13:40:00 13:40:[address] [facility] 2019-06-19 2019-06-19 [facility] [id number] Common 10:00:00 10:00:[address] [facility] 2019-02-13 2019-02-13 [facility] [id number] Common 09:40:00 09:40:[address] [facility] 2018-11-14 2018-11-14 [facility] [id number] Common 09:15:00 09:15:[address] [facility] 2018-08-27 2018-08-27 [facility] [id number] Common 17:55:00 17:55:[address] [facility] 2018-08-14 2018-08-14 [facility] [id number] Common 09:00:00 09:00:[address] [facility] 2018-05-16 2018-05-16 [facility] [id number] Common 09:00:00 09:00:[address] [facility] Results This patient has no known results.
[2023-06-01 20:57] LABS: Absolute Lymphocytes (CBC) 0.8 K/uL (0.7-4.9); Hematocrit 47.4 % (39.6-49.0); Lymphocytes % 7.3 % (15.3-44.8); MCV 90.7 fL (80-100); MPV 7.7 fL (7.6-11.3); RBC Red Blood Cell Count 5.22 M/uL (4.33-5.43)
--- NOTE | 2023-06-01 20:59 | RAD REPORT ---
EXAM DESCRIPTION: RAD - Chest Single View - 06/01/2023 8:46 pm CLINICAL HISTORY: COUGH Chest pain. COMPARISON: Chest Single View dated 05/18/2023; Chest Pa And Lat (2 Views) dated 04/25/2023; Chest Pa A nd Lat (2 Views) dated 08/27/2018; CHEST PA AND LAT 2 VIEW dated 01/16/2013; Abdomen Pelvis W Contras t dated 05/18/2023 FINDINGS: Portable technique limits examination quality. Mild ground-glass opacity in both lung bases. This may represent mild infiltrate. The heart is normal in size. No displaced fractures.
[2023-06-01 21:05] LABS: Protime INR 1.08
[2023-06-01 21:18] LABS: Albumin 3.6 g/dL (3.4-5.0); Bilirubin Direct 0.3 mg/dL (0-0.2); Bilirubin Indirect, Calculated 0.6 mg/dL (0.2-0.8); Bilirubin Total 0.9 mg/dL (0.2-1.0); Magnesium 2.1 mg/dL (1.6-2.4); Potassium 3.6 mEq/L (3.5-5.1); Protein, Total 6.9 g/dL (6.4-8.2); Troponin High Sensitivity 10.8 pg/mL (<58.9)
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
[2023-06-01] MEDS ORDERED: NA CHLORIDE 0.9% 250 ML ONE (21:23)
[2023-06-01] MEDS ORDERED: NA CHLORIDE 0.9% 1,000 ML ONE (21:23)
[2023-06-01] MEDS ORDERED: NA CHLORIDE 0.9% 100 ML ONE (21:23)
[2023-06-01] MEDS ORDERED: PIPERACIL/TAZO 3.375 GM VIAL IV ONE (21:23)
[2023-06-01] MEDS ORDERED: AZITHROMYCIN 500 MG INJ IVPB ONE (21:23)
[2023-06-01] MEDS ORDERED: ACETAMINOPHEN 500 MG TAB ONE (21:29)
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
[2023-06-01] MEDS ORDERED: ONDANSETRON 4 MG/2 ML VIAL IV PRN (23:44)
[2023-06-01] MEDS ORDERED: SODIUM CHLORIDE 0.9% 10ML INJ IV PRN (23:44)
[2023-06-02] MEDS: D5.45NS W/KCL 20MEQ 1,000 ML IV SCH ×3 (04:10→15:24)
[2023-06-02] MEDS: PIPER TAZO 3.375 GM in NA CHLORIDE 0.9% 100 ML IV SCH ×3 (05:10→21:47)
[2023-06-02 05:21] LABS: Absolute Lymphocytes (CBC) 1.4 K/uL (0.7-4.9); Lymphocytes % 11.5 % (15.3-44.8); MCV 90.9 fL (80-100); MPV 8.4 fL (7.6-11.3); RBC Red Blood Cell Count 4.51 M/uL (4.33-5.43)
[2023-06-02 05:50] LABS: Magnesium 2.1 mg/dL (1.6-2.4); Phosphorus 3.3 mg/dL (2.5-4.9); Thyroid Stimulating Hormone 0.485 uIU/mL (0.358-3.740)
[2023-06-02] MEDS: ENOXAPARIN 40 MG/0.4 ML SQ SCH (08:57)
[2023-06-02] MEDS: PANTOPRAZOLE 40 MG INJ IVP SCH (08:58)
--- NOTE | 2023-06-02 18:31 | P.PN ---
Subjective Date of Service: 06/02/23 Chief Complaint: Pneumonia No acute events since admission. 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 He denies any chest pain, cough, palpitations, or shortness of breath. Review of Systems 10-point ROS is otherwise unremarkable ENT: Other (hoarseness, aspiration) Physical Examination - Vital Signs Temperature: 98.8 F Blood Pressure: 121/56 Pulse: 52 Respirations: 14 Pulse Ox (%): 100 - Physical Exam General: Alert, In no apparent distress, Oriented x3 HEENT: Atraumatic, Mucous membr. moist/pink, Sclerae nonicteric Neck: Other (mild hoarseness appreciated) Respiratory: Diminished, Rhonchi/gurgles (bibasilar) Cardiovascular: No edema, Regular rate/rhythm, Normal S1 S2, No gallops, No rubs, No murmurs Gastrointestinal: Normal bowel sounds, Soft and benign, Non-distended, No tenderness, No rebound, No guarding Musculoskeletal: No clubbing Integumentary: No rashes Neurological: Normal speech, Normal affect - Studies Laboratory Data (last 24 hrs) 06/01/23 20:46: PT 11.9, INR 1.08 06/01/23 20:46: WBC 11.00 H, Hgb 16.0, Hct 47.4, Plt Count 167 06/01/23 20:46: Sodium 140, Potassium 3.6, BUN 22 H, Creatinine 1.14, Glucose 108 H, Magnesium 2.1, Total Bilirubin 0.9, AST 22, ALT 26, Alkaline Phosphatase 75, Lipase 26 Microbiology Data (last 24 hrs): 06/01/23 20:41 Nasopharnyx Influenza Type A Antigen Screen - Final 06/01/23 20:41 Nasopharnyx Influenza Type B Antigen Screen - Final Assessment And Plan - Plan # Sepsis likely secondary to Aspiration Pneumonia # 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 - Spoke with Dr. Almaraz (ENT) - she recommended obtaining a modified barium swallow study - Sepsis order set was initiated - Chest x-ray = "mild ground-glass opacity in both lung bases. This may represent mild infiltrate. The heart is normal in size. No displaced fractures." - Initial Lactate was 1.3 - Blood cultures drawn before antibiotics were given - Broad spectrum antibiotics started: Piperacillin-Tazobactam - In regards to fluids: - 30 mL/kg of IV fluids was not administered given SBP > 90, MAP > 65, lactic acid < 4 # Coronary Artery Disease # History of Cerebrovascular Accident # Hypertension # Gastroesophageal Reflux Disease - Hold PO meds until safe to swallow Joe Metlon M.D.
[2023-06-03 04:35] LABS: Absolute Lymphocytes (CBC) 1.5 K/uL (0.7-4.9); Hematocrit 40.8 % (39.6-49.0); MCV 90.1 fL (80-100); MPV 7.6 fL (7.6-11.3); RBC Red Blood Cell Count 4.53 M/uL (4.33-5.43)
[2023-06-03 04:48] LABS: Magnesium 2.1 mg/dL (1.6-2.4); Phosphorus 2.5 mg/dL (2.5-4.9); Potassium 4.2 mEq/L (3.5-5.1)
[2023-06-03] MEDS: D5.45NS W/KCL 20MEQ 1,000 ML IV SCH (07:32)
[2023-06-03] MEDS: PIPER TAZO 3.375 GM in NA CHLORIDE 0.9% 100 ML IV SCH ×3 (07:32→21:57)
[2023-06-03] MEDS: PANTOPRAZOLE 40 MG INJ IVP SCH (09:19)
[2023-06-03] MEDS: ENOXAPARIN 40 MG/0.4 ML SQ SCH (09:19)
--- NOTE | 2023-06-03 13:20 | P.PN ---
Subjective Date of Service: 06/03/23 Chief Complaint: Pneumonia No acute events overnight. He reports that he feels well. Per RN, he failed the bedside swallow study. Plan for modified barium study tomorrow. He denies any chest pain, cough, palpitations, or shortness of breath. Review of Systems 10-point ROS is otherwise unremarkable Physical Examination - Vital Signs Temperature: 98.1 F Blood Pressure: 131/68 Pulse: 52 Respirations: 18 Pulse Ox (%): 95 Assessment And Plan - Plan - Physical Exam General: Alert, In no apparent distress, Oriented x3 HEENT: Atraumatic, Mucous membr. 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 - Spoke with Dr. Almaraz (ENT) - she recommended obtaining a modified barium swallow study - NPO for now - Started D5-LR @ 100 mL/hr - Sepsis order set was initiated - Chest x-ray = "mild ground-glass opacity in both lung bases. This may represent mild infiltrate. The heart is normal in size. No displaced fractures." - Initial Lactate was 1.3 - Blood cultures drawn before antibiotics were given - Broad spectrum antibiotics started: Piperacillin-Tazobactam - In regards to fluids: - 30 mL/kg of IV fluids was not administered given SBP > 90, MAP > 65, lactic acid < 4 # Coronary Artery Disease # History of Cerebrovascular Accident # Hypertension # Gastroesophageal Reflux Disease - Hold PO meds until safe to swallow Joe Melton M.D.
[2023-06-03] MEDS: D5LR 1,000 ML IV SCH (15:09)
--- NOTE | 2023-06-03 20:47 | P.PN ---
Date of Service: 06/04/23 Subjective: Patient is in good spirits. Status post swallow eval. Results as mentioned below. Will notify ENT and see if there is any further. Otherwise, as long as chest x-ray and labs are improving anticipate discharge over the next 24-48 hours. ROS: 10 point ROS as noted above, otherwise negative Physical Exam: Gen: Alert,oriented, NAD HEENT: normal conjunctiva, sclera anicteric CV: regular rate & rhythm, no edema Pulm: non-labored respirations on room air, Diminished, Rhonchi/gurgles (faint bibasilar) Abd: soft, non-tender, non-distended MSK: no joint tenderness Neuro: normal speech, normal affect, moves all extremities Problem List: 1. Sepsis likely secondary to Aspiration Pneumonia 2. 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 Coronary Artery Disease 4. History of CVA 5. Hypertension 6. GERD PLAN 1. Dr. Geronimo yun with Dr. Almaraz (ENT) - Recommends modified barium swallow study; revealed mild laryngeal penetration with thin liquids. Speech therapy rec ommends avoiding straws and take small sips of liquids via cup while sitting up to 90 degrees. Recommend Soft and and Bite Sized textures with thin liquids. 2. Repeat CXR. From (06/01): mild ground-glass opacity in both lung bases. This may represent mild infiltrate. 3. Blood culture: NGTD 4. Continue Zosyn (06/02-) for aspiration; switch to oral if CXR improves 5. Diet as above 6. Continue with IVF 7. Lovenox
[2023-06-04 03:09] VITALS: BMI 24.9
[2023-06-04] MEDS: PIPER TAZO 3.375 GM in NA CHLORIDE 0.9% 100 ML IV SCH ×3 (05:21→21:59)
[2023-06-04] MEDS: D5LR 1,000 ML IV SCH ×2 (05:22→16:30)
[2023-06-04 07:11] LABS: Absolute Lymphocytes (CBC) 1.1 K/uL (0.7-4.9); Lymphocytes % 19.8 % (15.3-44.8); MCV 89.1 fL (80-100); MPV 8.1 fL (7.6-11.3); RBC Red Blood Cell Count 4.71 M/uL (4.33-5.43)
[2023-06-04 07:27] LABS: Magnesium 2.1 mg/dL (1.6-2.4); Phosphorus 2.6 mg/dL (2.5-4.9); Potassium 3.8 mEq/L (3.5-5.1)
[2023-06-04] MEDS: PANTOPRAZOLE 40 MG INJ IVP SCH (09:31)
[2023-06-04] MEDS: ENOXAPARIN 40 MG/0.4 ML SQ SCH (09:31)
--- NOTE | 2023-06-04 12:43 | RAD REPORT ---
EXAM DESCRIPTION: RAD - Barium Swallow Modified - 06/04/2023 12:36 pm CLINICAL HISTORY: ASPIRATION PNEUMONIA COMPARISON: Abdomen Pelvis W Contrast dated 05/18/2023 TECHNIQUE: The patient was given liquid, semi-solid and solid forms of barium. Lateral view fluorosc opic imaging was performed in conjunction with speech pathology service. FINDINGS: MBS FINDINGS ; LARYNGEAL PENTRATION : CLEARED WITH THIN LIQUID VIA STRAW PHARYNGEAL RESIDUE: VALLECULAR, PYRIFORM CLEARS WITH A DRY SWALLOW FLUORO TIME 3.09 MIN
[2023-06-05 01:25] VITALS: O2SAT 94
[2023-06-05] MEDS: PIPER TAZO 3.375 GM in NA CHLORIDE 0.9% 100 ML IV SCH (05:04)
[2023-06-05 07:01] LABS: Potassium 3.9 mEq/L (3.5-5.1)
--- NOTE | 2023-06-05 07:16 | RAD REPORT ---
EXAM DESCRIPTION: RAD - Chest Single View - 06/05/2023 5:31 am CLINICAL HISTORY: pneumonia COMPARISON: Chest Single View dated 06/01/2023; Chest Single View dated 05/18/2023; Chest Pa And Lat (2 Views) dated 04/25/2023; Chest Pa And Lat (2 Views) dated 08/27/2018 FINDINGS: Lines: None. Lungs: No evidence of edema or pneumonia. Pleural: No significant pleural effusions or pneumothorax. Cardiac: The heart size is within normal limits. Mediastinum: Within normal limits. Bones: No acute fractures. Other: None IMPRESSION: No acute cardiopulmonary disease.
[2023-06-05] MEDS: ENOXAPARIN 40 MG/0.4 ML SQ SCH (09:03)
[2023-06-05] MEDS: PANTOPRAZOLE 40 MG INJ IVP SCH (09:03)
[2023-06-05 12:22] VITALS: BP 168/79; TEMP 98.1
--- NOTE | 2023-06-05 15:05 | EKG ---
Test Date: 2023-06-01 Test Time: 22:07:15 Supervisor Treating And Pumping: RV MEASUREMENT RESULTS: Intervals: Rate: 67 GA: 206 QRSD: 86 QT: 384 QTc: 405 [place]: P: 44 GA: 206 QRS: 6 T: 50 INTERPRETIVE STATEMENTS: Normal sinus rhythm Normal ECG Compared to ECG 05/18/2023 15:21:30 Sinus bradycardia no longer present First degree AV block no longer present ST (T wave) deviation no longer present Electronically Signed On 06-05-23 14:58:28 CDT by Srikanth Martinez
== END 2023-06-05 12:44 | disposition home or self-care (01) | DRG 871 ==
LOC: ER 19:48 → 4TH 21:52
PROVIDERS: ADMIT Internal Medicine; ATTEND Hospitalist
DX: A41.9 Sepsis, unspecified organism (principal); J69.0 Pneumonitis due to inhalation of food and vomit; K21.9 Gastro-esophageal reflux disease without esophagitis; I10 Essential (primary) hypertension; I25.10 Atherosclerotic heart disease of native coronary artery without angina pectoris; F17.210 Nicotine dependence, cigarettes, uncomplicated; Z86.73 Personal history of transient ischemic attack (TIA), and cerebral infarction without residual deficits; Z79.02 Long term (current) use of antithrombotics/antiplatelets; Z79.899 Other long term (current) drug therapy; Z96.653 Presence of artificial knee joint, bilateral
CPT/HCPCS: 36415; 71045; 74230; 80048; 80076; 83605; 83690; 83735; 83880; 84100; 84439; 84443; 84484; 85025; 85610; 87040; 87635; 87804; 92526; 92611; 93005; 96365; 96375; 99285; C9113; J1650; J2543; J7030; J7050; J7121